=== PATIENT | male | born 1990 | race Caucasian/White ===

== ENCOUNTER 2019-03-10 12:37 | Inpatient (IN) | payer MEDICAID ==
[~2019-03-10] VITALS: Ht 177.8 cm; Wt 117.5 kg
--- NOTE | 2019-03-10 12:37 | NUR ---
Patient BIBA BLS, triaged by RN and transferred to chair C. RN evaluating patient.
[2019-03-10 12:48] VITALS: BP 157/81
--- NOTE | 2019-03-10 12:56 | NUR ---
PT AMBULATED TO BED 01.
--- NOTE | 2019-03-10 12:57 | NUR ---
Patient transferred to bed 1 for further care. RN re-evaluating patient at bedside.
--- NOTE | 2019-03-10 13:30 | NUR ---
URBANO Peña C/O ANXIETY STARTING TODAY WHILE DRIVING. PT STATES HE PULLED OVER AND CALLED 911. PT STATES HE HAS A HX OF ANXIETY AND IS TAKING BUSPIRONE FOR IT AT HOME. PT ALERT AND ORIENTED, SPEAKING CLEARLY. COOL/DRY SKIN. BED IN LOW POSITION, PT GIVEN GOWN AND PLACED ON WAD LUBRICATOR AT THIS TIME.
[2019-03-10 14:09] LABS: BASOPHILS % (AUTO) 0.5 % (0.0-2.0); EOSINOPHILS # (AUTO) 0.1 K/uL (0-0.4); EOSINOPHILS % (AUTO) 0.6 % (0.0-4.0); HEMATOCRIT 40.8 % (36-52); HEMOGLOBIN 13.9 g/dL (12.0-18.0); LYMPHOCYTES # (AUTO) 1.5 K/uL (2.0-11.5); LYMPHOCYTES % (AUTO) 16.7 % (20.5-51.1); MEAN CORPUSCULAR HEMOGLOBIN 28 pg (27-31); MEAN CORPUSCULAR HGB CONC 34 g/dL (33-37); MEAN CORPUSCULAR VOLUME 83.2 fL (80-94); MONOCYTES # (AUTO) 0.7 K/uL (0.8-1.0); MONOCYTES % (AUTO) 7.6 % (1.7-9.3); NEUTROPHILS # (AUTO) 6.6 K/uL (1.8-7.7); NEUTROPHILS % (AUTO) 74.6 % (42.2-75.2); PLATELET COUNT (AUTO) 220 K/uL (140-450); RED BLOOD CELL COUNT(AUTO) 4.91 MIL/uL (4.20-6.10); WHITE BLOOD COUNT (AUTO) 8.8 K/uL (4.8-10.8)
[2019-03-10 14:17] LABS: ANION GAP 15.6 (8-16); CARBON DIOXIDE 27.6 mmol/L (21-32); POTASSIUM 3.2 mmol/L (3.5-5.1)
[2019-03-10 14:21] LABS: TOTAL BILIRUBIN 1.1 mg/dL (0.0-1.0)
[2019-03-10] MEDS ORDERED: ASPIRIN 81 MG TAB.CHEW PO ONE (14:45)
--- NOTE | 2019-03-10 14:58 | NUR ---
PT RESTING IN BED, NO NEW NEEDS AT THIS TIME
[2019-03-10] MEDS ORDERED: ORE25 PO (15:29)
[2019-03-10] MEDS ORDERED: BUS5 PO (15:29)
[2019-03-10] MEDS ORDERED: HYDROcodone/APAP 5/325 MG 1 TAB TAB PO PRN (15:45)
[2019-03-10] MEDS ORDERED: ONDANSETRON 4 MG/2 ML VIAL IM/IVP PRN (15:45)
[2019-03-10] MEDS ORDERED: LORazepam 2 MG/ML VIAL IM/IVP PRN (15:45)
[2019-03-10] MEDS ORDERED: MORPHINE SULFATE 2 MG/ML SYR IVP PRN (15:45)
[2019-03-10] MEDS ORDERED: ACETAMINOPHEN 325 MG TAB PO PRN (15:45)
[2019-03-10] MEDS ORDERED: ZOLPIDEM 5 MG TAB PO PRN (15:45)
[2019-03-10] MEDS ORDERED: DOCUSATE SODIUM 100 MG GELCAP PO PRN (15:45)
--- NOTE | 2019-03-10 16:11 | NUR ---
PT RESTING IN BED, NO NEW NEEDS AT THIS TIME
[2019-03-10] MEDS ORDERED: POTASSIUM CHLORIDE 10 MEQ TABER PO SCH ×3 (16:15→17:43)
[2019-03-10 16:33] LABS: PROTHROMBIN TIME 9.5 secs (10.8-13.4)
[2019-03-10 16:36] LABS: MAGNESIUM 1.8 mg/dL (1.8-2.4); PHOSPHORUS 2.5 mg/dL (2.5-4.9); THYROID STIMULATING HORMONE 0.44 uIU/mL (0.34-3.74)
--- NOTE | 2019-03-10 16:44 | NUR ---
RECEIVED BEDSIDE REPORT FROM ER NURSE. PATIENT IS AWAKE, ALERT AND ORIENTEDX4. NO SIGNS OF DISTRESS ON RA. SKIN IS INTACT. AMBULATORY. ABLE TO MAKE NEEDS KNOWN. TELE MONITOR IN PLACE. IV ON R AC 20G SL. CLEAN, DRY AND INTACT. ADMISSION QUESTIONS ANSWERED. VITALS STABLE. MRSA SWAB DONE. WILL CONTINUE TO MONITOR THE PATIENT
--- NOTE | 2019-03-10 16:44 | NUR ---
Patient will be admitted to care of DR. WYATT. Admited to TELEMETRY. Will go to [facility] [address]. Belongings list completed. Report to [facility] IGNACIO.
[2019-03-10 17:00] VITALS: BP 137/84
[2019-03-10] MEDS: NACL 0.9% 1,000 ML IV SCH (18:45)
--- NOTE | 2019-03-10 18:52 | NUR ---
STARTED IVF. PATIENT TOLERATING WELL. PATIENT WANTS MORE FOOD BUT EXPLAINED TO HIM HE IS ON A CARDIAC AND CCHO DIET. HE SAID HIS WILL BRING SNACKS WITH LESS SODIUM AND SUGAR
--- NOTE | 2019-03-10 19:05 | NUR ---
GAVE BEDSIDE REPORT TO FIRE EXTINGUISHER CHARGER NURSE. PATIENT ENDORSED IN STABLE CONDITION.
--- NOTE | 2019-03-10 19:30 | NUR ---
RECEIVED PATIENT AWAKE IN BED. PATIENT DENIES CHEST PAIN AT THIS TIME. PATIENT ON ROOM AIR. NO S/S OF DISTRESS NOTED. PT ON TELE MONITORING. BED LOWERED WITH CALL LIGHT WITHIN REACH. WILL CONTINUE TO MONITOR
[2019-03-10 19:53] VITALS: BP 142/83
[2019-03-10] MEDS: METOPROLOL 50 MG TAB PO SCH (21:48)
[2019-03-10] MEDS: SIMVASTATIN 20 MG TAB PO SCH (21:49)
--- NOTE | 2019-03-10 22:00 | NUR ---
PT AWAKE IN BED, WATCHING TELEVISION. NO S/S OF DISTRESS NOTED.
[2019-03-11] VITALS: BP 117/80
--- NOTE | 2019-03-11 01:00 | NUR ---
PT ASLEEP IN BED. NO S/S OF DISTRESS NOTED
[2019-03-11 05:53] VITALS: BP 123/78
[2019-03-11] MEDS ORDERED: DEXTROSE 50% 50 ML SYR IVP PRN (06:15)
[2019-03-11] MEDS ORDERED: INSULIN LISPRO SLIDING SCALE 100 UNITS/ML VIAL SUBQ PRN (06:15)
[2019-03-11 06:55] LABS: BASOPHILS % (AUTO) 0.6 % (0.0-2.0); EOSINOPHILS # (AUTO) 0.1 K/uL (0-0.4); EOSINOPHILS % (AUTO) 1.9 % (0.0-4.0); HEMATOCRIT 40.6 % (36-52); HEMOGLOBIN 13.5 g/dL (12.0-18.0); LYMPHOCYTES # (AUTO) 2.4 K/uL (2.0-11.5); MEAN CORPUSCULAR HEMOGLOBIN 28 pg (27-31); MEAN CORPUSCULAR HGB CONC 33 g/dL (33-37); MEAN CORPUSCULAR VOLUME 83.4 fL (80-94); MONOCYTES # (AUTO) 0.6 K/uL (0.8-1.0); MONOCYTES % (AUTO) 7.9 % (1.7-9.3); NEUTROPHILS # (AUTO) 4.1 K/uL (1.8-7.7); NEUTROPHILS % (AUTO) 56.6 % (42.2-75.2); PLATELET COUNT (AUTO) 207 K/uL (140-450); RED BLOOD CELL COUNT(AUTO) 4.86 MIL/uL (4.20-6.10); WHITE BLOOD COUNT (AUTO) 7.2 K/uL (4.8-10.8)
[2019-03-11 07:03] LABS: ANION GAP 11.7 (8-16); CARBON DIOXIDE 30.7 mmol/L (21-32); CREATININE 0.9 mg/dL (0.7-1.3); POTASSIUM 3.4 mmol/L (3.5-5.1)
[2019-03-11 07:10] LABS: CHOL/HDL RATIO 5.4 (1-4.5)
--- NOTE | 2019-03-11 07:30 | NUR ---
PT REPORT GIVEN AT BEDSIDE. URINE SAMPLE SENT TO THE LAB
--- NOTE | 2019-03-11 07:34 | NUR ---
RECEIVED BEDSIDE REPORT FROM PM RN PT AWAKE IN BED PT APPEARS STABLE AND IN NO APPARENT DISTRESS. ALL SAFETY MEASURES ARE IN PLACE WILL CONTINUE TO MONITOR.
[2019-03-11] MEDS: BLOOD GLUCOSE MONITORING 1 DEV DEV FS SCH ×4 (07:36→21:00)
[2019-03-11] MEDS: HYDROCHLOROTHIAZIDE 25 MG TAB PO SCH (08:13)
[2019-03-11] MEDS: METOPROLOL 50 MG TAB PO SCH (08:14)
[2019-03-11 08:15] VITALS: BP 128/89
--- NOTE | 2019-03-11 08:30 | NUR ---
PATIENT HAS BEEN SCREENED AND CATEGORIZED MODERATE NUTRITION RISK. PATIENT WILL BE SEEN WITHIN 3-5 DAYS OF ADMISSION. 03/13/19 03/15/[address]
[2019-03-11] MEDS: NACL 0.9% 1,000 ML IV SCH (08:48)
[2019-03-11] MEDS ORDERED: ASPIRIN 81 MG TAB.CHEW PO SCH (09:00)
[2019-03-11] MEDS ORDERED: busPIRone 5 MG TAB PO SCH (09:00)
[2019-03-11] MEDS ORDERED: LISINOPRIL 5 MG TAB PO SCH (09:00)
--- NOTE | 2019-03-11 09:12 | NUR ---
FREQUENT ROUNDING ON PT PT APPEARS STABLE AND IN NO APPARENT DISTRESS. ALL SAFETY MEASURES ARE IN PLACE WILL CONTINUE TO MONITOR.
[2019-03-11 09:49] LABS: APPEARANCE,URINE CLEAR (CLEAR); BILIRUBIN,URINE NEGATIVE (NEGATIVE); BLOOD, URINE NEGATIVE (NEGATIVE); COLOR,URINE YELLOW (YELLOW); LEUKOCYTE ESTERASE ,URINE NEGATIVE (NEGATIVE); NITRITE, URINE NEGATIVE (NEGATIVE); PH,URINE 5.5 (5.0-9.0); UGLUCOSE NEGATIVE (NEGATIVE)
[2019-03-11 09:55] LABS: BARBITURATE, URINE NEG. ng/ml (NEG <=200); BENZODIAZEPINE, URINE NEG. ng/mL (NEG <=200); CANNABINOID, URINE NEG. ng/mL (NEG <=50); COCAINE, URINE NEG. ng/mL (NEG <=300); OPIATE, URINE NEG. ng/mL (NEG <=2000); PHENCYCLIDINE SCREEN,URINE NEG. ng/mL (NEG <=25)
--- NOTE | 2019-03-11 11:20 | NUR ---
FREQUENT ROUNDING ON PT PT APPEARS STABLE AND IN NO APPARENT DISTRESS. ALL SAFETY MEASURES ARE IN PLACE WILL CONTINUE TO MONITOR
[2019-03-11 12:10] VITALS: BP 122/72
--- NOTE | 2019-03-11 13:29 | NUR ---
03/11/19 RD INITIAL ASSESSMENT COMPLETED PLEASE REFER TO NUTRITION ASSESSMENT UNDER CARE ACTIVITY FOR ESTIMATED NUTRITIONAL NEEDS. 1. CONTINUE CARDIAC AND CCHO 60GM DIET TOLERATED 2. RD PROVIDED NUTRITION EDUCATION FOR LOWERING CHOLESTEROL 3. RD TO FOLLOW-UP 5-7 DAYS, LOW RISK FERNANDO PATTON, RD
--- NOTE | 2019-03-11 13:31 | NUR ---
FREQUENT ROUNDING ON PT PT APPEARS STABLE AND IN NO APPARENT DISTRESS. ALL SAFETY MEASURES ARE IN PLACE WILL CONTINUE TO MONITOR
--- NOTE | 2019-03-11 15:46 | NUR ---
FREQUENT ROUNDING ON PT PT APPEARS STABLE AND IN NO APPARENT DISTRESS.
[2019-03-11 16:20] VITALS: BP 124/72
[2019-03-11] MEDS ORDERED: SERTRALINE 50 MG TAB PO SCH (18:30)
--- NOTE | 2019-03-11 19:35 | NUR ---
ENDORSED PT TO PM RN PT APPEARS STABLE AND IN NO APPARENT DISTRESS. ALL SAFETY MEASURES ARE IN PLACE PT ON ROOM AIR. .
--- NOTE | 2019-03-11 19:36 | NUR ---
RECEIVED REPORT FROM DAY SHIFT NURSE. AAOX4. DENIES PAIN OR SOB. ON ROOM AIR. PT REFUSED IVF. PER PT, HE'S DRINKING A LOT OF WATER. SKIN INTACT. CALL LIGHT WITHIN REACH.
[2019-03-11] MEDS: busPIRone 5 MG TAB PO SCH (21:00)
[2019-03-11] MEDS: SIMVASTATIN 20 MG TAB PO SCH (21:00)
--- NOTE | 2019-03-11 21:00 | NUR ---
DUE MEDS GIVEN. PT TOLERTAED WELL. ALL NEEDS ATTENDED AT THIS TIME. CALL LIGHT WITHIN REACH.
[2019-03-12] VITALS: BP 100/59
--- NOTE | 2019-03-12 00:10 | NUR ---
PT SLEEPING BUT WAKES EASILY. RESP EVEN AND UNLABORED. NO S/S OF PAIN OR DISCOMFORT. CALL LIGTH WITHINR EACH.
[2019-03-12] MEDS: NACL 0.9% 1,000 ML IV SCH (01:04)
--- NOTE | 2019-03-12 03:00 | NUR ---
PT SLEEPING. NO S/S OF RESP DISTRESS. NO S.S OF PAIN.
--- NOTE | 2019-03-12 06:20 | NUR ---
PT LYING IN BED, AWAKE. PT'S BLOOD SUGAR 105. NO INSULIN COVERAGE.
[2019-03-12] MEDS: BLOOD GLUCOSE MONITORING 1 DEV DEV FS SCH (06:48)
--- NOTE | 2019-03-12 07:15 | NUR ---
ENDORSED PT TO DAY SHIFT NURSE. PT IN STABLE CONDITION.
--- NOTE | 2019-03-12 07:18 | NUR ---
RECEIVED PT FROM NIGHT NURSE. PT WITH EYES CLOSED BUT AROUSABLE TO SPEECH, AAOX4. SINUS RHYTHM. [id number] DIET. SKIN INTACT. IV SIGHT PATENT AND ASYMPTOMATIC R AC 20G, PT REFUSED IVF IN PREVIOUS SHIFT. RESPIRATIONS EVEN AND UNLABORED ON ROOM AIR. SAFETY MEASURES IN PLACE. BED IN LOW POSITION. CALL LIGHT WITHIN REACH. WILL CONTINUE TO MONITOR.
[2019-03-12 08:00] VITALS: BP 114/78
[2019-03-12] MEDS ORDERED: SERTRALINE 50 MG TAB PO SCH (09:00)
[2019-03-12] MEDS: HYDROCHLOROTHIAZIDE 25 MG TAB PO SCH (09:19)
[2019-03-12] MEDS: busPIRone 5 MG TAB PO SCH (09:19)
--- NOTE | 2019-03-12 09:23 | NUR ---
MEDICATIONS ADMINISTERED PER ORDER. PT TOLERATED WELL. NO DISTRESS NOTED. PT DENIES PAIN. CALL LIGHT WITHIN REACH. WILL CONTINUE TO MONITOR.
[2019-03-12] MEDS ORDERED: BUS5 PO ×2 (10:15→10:38)
[2019-03-12] MEDS ORDERED: SERT-146 PO (10:15)
[2019-03-12 10:21] VITALS: BP 114/78
[2019-03-12] MEDS ORDERED: ATI.5 PO (10:38)
--- NOTE | 2019-03-12 11:00 | NUR ---
PT READY FOR DISCHARGE HOME AT THIS TIME. FOLLOWUP AND DISCHARGE INSTRUCTIONS GIVEN, PT VERBALIZED UNDERSTANDING. IV SITE REMOVED WITH MINIMAL BLOOD LOSS AND LUMEN INTACT. RESPIRATIONS EVEN AND UNLABORED ON ROOM AIR. VITAL SIGNS STABLE. BELONGINGS VERIFIED AND RETURNED TO PT. DISCHARGE PAPERWORK SIGNED. PT LAYING IN BED WAITING FOR TRANSPORTATION TO ARRIVE.
== END 2019-03-12 12:55 | disposition home or self-care (01) | DRG 190 ==
LOC: MED 12:37 → MTU 15:12
PROVIDERS: ADMIT General Practice; ATTEND General Practice
DX: I21.A1 Myocardial infarction type 2 (principal); E87.3 Alkalosis; D68.59 Other primary thrombophilia; E66.01 Morbid (severe) obesity due to excess calories; R45.850 Homicidal ideations; E87.6 Hypokalemia; R06.4 Hyperventilation; F41.0 Panic disorder [episodic paroxysmal anxiety]; F41.1 Generalized anxiety disorder; F32.9 Major depressive disorder, single episode, unspecified; I10 Essential (primary) hypertension; Z68.37 Body mass index [BMI] 37.0-37.9, adult; Z71.3 Dietary counseling and surveillance; Z79.899 Other long term (current) drug therapy; Z63.0 Problems in relationship with spouse or partner; Z98.52 Vasectomy status; Z82.3 Family history of stroke; Z82.49 Family history of ischemic heart disease and other diseases of the circulatory system
CPT/HCPCS: 36415; 36600; 71045; 80048; 80053; 80305; 81003; 82803; 82948; 83036; 83690; 83735; 83880; 84100; 84134; 84443; 84484; 85025; 85379; 85610; 85730; 87081; 93005; 99285; J1644; J1815; J7030; Q0092